=== PATIENT | male | born 1990 | race Caucasian/White ===

== ENCOUNTER 2025-02-24 12:52 | Outpatient (CLI) | payer OTHER, SELFPAY ==
[2025-02-24 11:01] LABS: TSH 0.20 uIU/mL (0.36-3.74)
== END 2025-02-24 12:53 | disposition home or self-care (01) ==
LOC: LBO 12:52
PROVIDERS: PCP Nurse Practitioner Family; Visit Provider Nurse Practitioner Family
DX: E05.90 Thyrotoxicosis, unspecified without thyrotoxic crisis or storm (principal)
CPT/HCPCS: 36415; 84439; 84443